=== PATIENT | male | born 1955 | race Caucasian/White ===

== ENCOUNTER 2023-07-28 08:31 | Outpatient (CLI) | payer MEDICARE, SELFPAY ==
--- NOTE | ~2023-07-28 | XR_ITS ---
Cervical Spine: AP, lateral, open-mouth views Clinical History: Pain Findings: The normal lordotic curve is maintained. The vertebral bodies and posterior elements appea r intact. The intervertebral disc spaces are well maintained. There is mild to moderate facet arthro robel in the cervical spine. Pre-vertebral soft tissues are unremarkable. Impression: Mild to moderate facet arthropathy in the cervical spine. Reviewed, dictated and finalized at location . Impression: Mild to moderate facet arthropathy in the cervical spine.
== END 2023-07-28 08:32 ==
LOC: MICIMG 08:32
PROVIDERS: PCP Family Medicine; Visit Provider Family Medicine
DX: M54.2 Cervicalgia (principal)
CPT/HCPCS: 72040

== ENCOUNTER 2023-09-14 08:36 | Outpatient (CLI) | payer MEDICARE, SELFPAY ==
--- NOTE | ~2023-09-14 | XR_ITS ---
XR hand RT min 3V Ordering provider: Rc Bernardo MD History: . Unilat primary osteoarthritis.MOST PAIN TO RT PROX 1ST DIGIT . Comparison: None. FINDINGS: BONES: No acute fracture or dislocation. Old boxers fracture in the fifth metacarpal bone. JOINT SPACES: Osteoarthritic changes seen in the second distal interphalangeal joint. Osteoarthritic changes of the first carpometacarpal joint is seen. SOFT TISSUES: Normal. IMPRESSION: No acute osseous abnormality right hand. Osteoarthritic changes of the distal interphalangeal joint of the second finger and in the first carp ometacarpal joint. Reviewed, dictated and finalized at location A. IMPRESSION: No acute osseous abnormality right hand. Osteoarthritic changes of the distal interphalangeal joint of the second finger and in the first carpometacarpal joint.
== END 2023-09-14 08:37 | disposition home or self-care (01) ==
PROVIDERS: PCP Family Medicine; Visit Provider Plastic Surgery
DX: M18.11 Unilateral primary osteoarthritis of first carpometacarpal joint, right hand (principal)
CPT/HCPCS: 73130